=== PATIENT | male | born 1980 | race Caucasian/White ===

== ENCOUNTER 2025-03-30 08:20 | Outpatient (CLI) | payer OTHER ==
[2025-03-30] MEDS ORDERED: iohexol 300mg/ml 100ml inj. ONE (08:26)
--- NOTE | 2025-03-30 09:23 | RADIOLOGY REPORT ---
US US TESTIC/W/DUPLEX Indication: EPIDIDYMITIS Comparison: None Technique: High resolution scrotal ultrasound performed with a linear transducer. Findings: The right testis is 4.1 cm. The left testis is 3.8 cm. Mildly heterogeneous echotexture, nonspecific. Preserved spectral doppler and vascular waveforms. Symmetric vascularity. 4 mm left epididymal cyst. IMPRESSION: No acute findings in the testicles.
--- NOTE | 2025-03-30 17:10 | RADIOLOGY REPORT ---
Indication: EPIDIDYMITIS Technique: CT axial images of the abdomen and pelvis are obtained with intravenous contrast. Coronal and sagittal reformats were obtained. Radiation Dose Information: CTDI volume is 27 mGy. Dose-length product is 1395 mGy*cm Comparison: Testicular ultrasound from today FINDINGS: Lung bases demonstrate no pleural effusion. Adrenal glands, pancreas and liver unremarkable. No CT evidence for cholelithiasis. Splenic hypervascular lesion measuring 1 cm Kidneys demonstrate no hydronephrosis. Stomach partially distended. Small bowel loops are normal in caliber. Moderate volume stool in the colon. No secondary signs for appendicitis. Abdominal aorta normal in caliber. Bladder distended. No free pelvic fluid. No inguinal lymphadenopathy. Mild bilateral sacroiliac degenerative joint disease. L5 pars defects with 4 mm anterolisthesis L5 on S1. Mild thoracolumbar degenerative disc disease. Probable bilateral scrotal hydroceles, [id number]. IMPRESSION: Probable bilateral scrotal hydroceles, [id number]. Repeat ultrasound of the testicles/scrotum with Valsalva maneuvers recommended. Moderate volume stool in the colon. Splenic hypervascular lesion measuring 1 cm, possibly hemangioma. This can be further evaluated with multiphasic MRI abdomen with and without contrast
== END 2025-03-30 23:59 | disposition home or self-care (01) ==
LOC: RAD 08:20
PROVIDERS: ATTEND Nurse Practitioner Family
DX: R19.5 Other fecal abnormalities (principal); M53.3 Sacrococcygeal disorders, not elsewhere classified; N45.1 Epididymitis; M51.35 Other intervertebral disc degeneration, thoracolumbar region; M43.17 Spondylolisthesis, lumbosacral region; N32.89 Other specified disorders of bladder; D73.89 Other diseases of spleen
CPT/HCPCS: 74177; 76870; 93976; Q9967